=== PATIENT | male | born 2005 | race Caucasian/White ===

== ENCOUNTER → 2024-11-17 | Outpatient (CLI) | payer SELFPAY ==
--- NOTE | 2024-11-17 14:57 | RAD_ITS ---
PROCEDURE: FINGER(S) MIN 2 VIEWS 11/17/2024 REASON FOR EXAM: INJURY Pain following injury. TECHNIQUE: Procedure Code: RADFIN Modality: DX Procedure: FINGER(S) MIN 2 VIEWS Laterality: Right thumb COMPARISON: None FINDINGS: Bones: Nondisplaced fracture of the base of the distal phalanx of the thumb. Joints: Normal alignment. Joint spaces preserved. No arthropathic features. Soft tissues: Soft tissue swelling. Other: RAD/Finger(s) Min 2 Views IMPRESSION: Nondisplaced fracture at the base of the distal phalanx of the right thumb with overlying soft tissue swelling. Reading Location: [place] [id number]
== END | disposition home or self-care (01) ==
LOC: MTRAD 14:57
PROVIDERS: PCP Pediatrics; Referring Provider Physician Assistant; Visit Provider Physician Assistant
DX: S69.91XA Unspecified injury of right wrist, hand and finger(s), initial encounter (principal)
CPT/HCPCS: 73140